=== PATIENT | male | born 1945 | race Caucasian/White ===

== ENCOUNTER → 2017-01-07 | Outpatient (CLI) | payer MEDICARE, BC ==
--- NOTE | 2017-01-07 15:15 | RADIOLOGY REPORT (SQ) ---
EXAM DESCRIPTION: HIPS BILATERAL COMPLETED DATE/TIME: 01/07/2017 1:57 pm REASON FOR STUDY: PAIN IN UNSPECIFIED HIP M25.559 PAIN IN UNSPECIFIED HIP M54.5 LOW BACK PAIN COMPARISON: None. NUMBER OF VIEWS: Two views TECHNIQUE: AP pelvis and additional frog-leg view of both hips. LIMITATIONS: None. FINDINGS: MINERALIZATION: Normal. HIPS: No acute fracture or dislocation. No worrisome bone lesions. PELVIS AND SACRUM: No acute fracture or dislocation. No worrisome bone lesions. PUBIS AND ISCHIUM: No acute fracture. LOWER LUMBAR SPINE: See report for lumbar spine series SOFT TISSUES: No findings. OTHER: No other significant finding. IMPRESSION: NEGATIVE STUDY OF THE PELVIS AND HIPS. TECHNICAL DOCUMENTATION: JOB ID: [id number] [employer]- All Rights Reserved
--- NOTE | 2017-01-07 16:35 | RADIOLOGY REPORT (SQ) ---
EXAM DESCRIPTION: LUMBAR SPINE COMPLETE COMPLETED DATE/TIME: 01/07/2017 1:57 pm REASON FOR STUDY: LOW BACK PAIN M25.559 PAIN IN UNSPECIFIED HIP M54.5 LOW BACK PAIN COMPARISON: None. NUMBER OF VIEWS: Five views including obliques. TECHNIQUE: AP, lateral, oblique, and sacral radiographic images acquired of the lumbar spine. LIMITATIONS: None. FINDINGS: MINERALIZATION: Normal. SEGMENTATION: Normal. No transitional anatomy. ALIGNMENT: Minimal retrolisthesis of L1 over L2, and L2 over L3. VERTEBRAE: Maintained height. No fracture or worrisome bone lesion. DISCS: High-grade disc space narrowing at L1-2, and L5-S1. Moderate disc space narrowing at the othe r lumbar levels. POSTERIOR ELEMENTS: Pedicles and facets are intact. No pars defect or posterior arch defects. Bilat eral facet arthropathy left greater than right at L3-4, L4-5, and L5-S1. HARDWARE: None in the spine. PARASPINAL SOFT TISSUES: Normal. PELVIS: Intact as visualized. No fractures or worrisome bone lesions. SI joints intact. OTHER: No other significant finding. IMPRESSION: Diffuse degenerative disc changes with lower lumbar facet arthropathy. No acute fracture. TECHNICAL DOCUMENTATION: JOB ID: [id number] [employer]- All Rights Reserved
== END ==
LOC: OD 13:33
PROVIDERS: ATTEND Nurse Practitioner
DX: M25.552 Pain in left hip (principal); M25.551 Pain in right hip; M54.5 Low back pain
CPT/HCPCS: 72110; 73522

== ENCOUNTER → 2017-07-18 | Outpatient (CLI) | payer MEDICARE, BC ==
--- NOTE | 2017-07-18 13:43 | RADIOLOGY REPORT (SQ) ---
EXAM DESCRIPTION: T SPINE AP/LAT COMPLETED DATE/TIME: 07/18/2017 1:29 pm REASON FOR STUDY: DORSALGIA, UNSPECIFIED M54.9 DORSALGIA, UNSPECIFIED COMPARISON: Lumbar spine 01/07/2017 NUMBER OF VIEWS: Two views. TECHNIQUE: AP and lateral radiographic images acquired of the thoracic spine. LIMITATIONS: None. FINDINGS: MINERALIZATION: Normal. ALIGNMENT: Minor scoliosis mid thoracic region. VERTEBRAE: Minor flattening mid and lower thoracic vertebral bodies, appear stable from visualized po rtion of prior lateral lumbar spine. DISCS: Multilevel disc space narrowing with osteophytes. HARDWARE: None in the spine. MEDIASTINUM AND SOFT TISSUES: Prominent mediastinum. May reflect technique. Consider chest followup . VISUALIZED LUNG GUERIN: Clear. OTHER: No other significant finding. IMPRESSION: Diffuse arthritic changes thoracic spine with minor old flattening mid and lower thoraci c vertebral bodies. COMMENT: Prominent mediastinum may reflect technique. Consider chest x-ray followup peer TECHNICAL DOCUMENTATION: JOB ID: [id number] [employer]- All Rights Reserved Reading location - IP/workstation name: [email or web address]
== END ==
LOC: OD 13:15
PROVIDERS: ATTEND Nurse Practitioner
DX: M54.9 Dorsalgia, unspecified (principal); M46.84 Other specified inflammatory spondylopathies, thoracic region
CPT/HCPCS: 72070

== ENCOUNTER → 2017-08-29 | Outpatient (CLI) | payer MEDICARE, BC ==
--- NOTE | 2017-08-29 14:02 | EKG REPORT ---
SEVERITY:- NORMAL ECG - SINUS RHYTHM : Confirmed by: Manjinder Penn MD 29-Aug-2017 14:02:11
[2017-08-29 14:15] LABS: ABSOLUTE BASOPHILS # (AUTO) 0.1 10^3/uL (0.0-0.2); ABSOLUTE EOSINOPHILS # (AUTO) 0.4 10^3/uL (0.0-0.6); ABSOLUTE LYMPHOCYTES (AUTO) 1.6 10^3/uL (0.5-4.7); ABSOLUTE MONOCYTES (AUTO) 0.7 10^3/uL (0.1-1.4); BASOPHILS % (AUTO) 1.1 % (0-2); EOSINOPHILS % (AUTO) 5.2 % (0-6); HEMOGLOBIN 15.4 g/dL (13.5-17.0); LYMPHOCYTES % (AUTO) 20.5 % (13-45); MEAN CORPUSCULAR HEMOGLOBIN 29.8 pg (27.0-33.4); MEAN CORPUSCULAR HGB CONC 34.2 g/dL (32.0-36.0); MEAN CORPUSCULAR VOLUME 87 fl (80-97); MONOCYTES % (AUTO) 9.5 % (3-13); PLATELET COUNT 346 10^3/uL (150-450); RED BLOOD COUNT 5.15 10^6/uL (4.35-5.55); RED CELL DISTRIBUTION WIDTH 14.1 % (11.5-14.0); SEGMENTED NEUTROPHILS % (AUTO) 63.7 % (42-78); TOTAL CELLS COUNTED % (AUTO) 100 %; WHITE BLOOD COUNT 7.8 10^3/uL (4.0-10.5)
[2017-08-29 14:29] LABS: APPEARANCE,URINE CLEAR; BILIRUBIN,URINE NEGATIVE (NEGATIVE); COLOR,URINE YELLOW; GLUCOSE, URINE NEGATIVE (NEGATIVE); KETONES,URINE NEGATIVE (NEGATIVE); LEUKOCYTE ESTERASE,URINE NEGATIVE (NEGATIVE); NITRITE,URINE NEGATIVE (NEGATIVE); PROTEIN,URINE NEGATIVE (NEGATIVE); URINE SPECIFIC GRAVITY 1.016; UROBILINOGEN,URINE NEGATIVE mg/dL (<2.0)
[2017-08-29 14:43] LABS: ANION GAP 14 (5-19); BLOOD UREA NITROGEN 26 mg/dL (7-20); CALCIUM 10.3 mg/dL (8.4-10.2); CARBON DIOXIDE 30 mmol/L (22-30); CHLORIDE 97 mmol/L (98-107); GLUCOSE 63 mg/dL (75-110)
--- NOTE | 2017-08-29 14:57 | RADIOLOGY REPORT (SQ) ---
EXAM DESCRIPTION: CHEST PA/LATERAL COMPLETED DATE/TIME: 08/29/2017 1:34 pm REASON FOR STUDY: PRE-OP COMPARISON: None. EXAM PARAMETERS: NUMBER OF VIEWS: two views TECHNIQUE: Digital Frontal and Lateral radiographic views of the chest acquired. RADIATION DOSE: NA LIMITATIONS: none FINDINGS: LUNGS AND PLEURA: No opacities, masses or pneumothorax. No pleural effusion. MEDIASTINUM AND HILAR STRUCTURES: No masses or contour abnormalities. HEART AND VASCULAR STRUCTURES: Heart normal size. No evidence for failure. BONES: No acute findings. Degenerative changes in the spine. HARDWARE: None in the chest. OTHER: No other significant finding. IMPRESSION: NO SIGNIFICANT RADIOGRAPHIC FINDING IN THE CHEST. TECHNICAL DOCUMENTATION: JOB ID: [id number] [employer]- All Rights Reserved Reading location - IP/workstation name: [email or web address]
== END ==
LOC: OD 12:44
PROVIDERS: ATTEND Orthopaedic Surgery
DX: Z01.810 Encounter for preprocedural cardiovascular examination (principal); Z01.812 Encounter for preprocedural laboratory examination; Z01.818 Encounter for other preprocedural examination
CPT/HCPCS: 36415; 71046; 80048; 81001; 85025; 93005; 93010

== ENCOUNTER 2017-09-23 11:34 | Inpatient (IN) | payer MEDICARE, BC ==
[~2017-09-23 11:34] MED LIST: BUPIVACAINE INJ/PF LIPOSOME/PF 266 MG/20 ML SDV INJ PRN; CEFAZOLIN INJ 1 GM VIAL IV PRN; IBUPROFEN 800 MG in NORMAL SALINE 250 ML IV PRN; LACTATED RINGERS 1000 ML IV PRN; LANSOPRAZOLE 15 MG TAB.RAP.DR PO PRN; LIDOCAINE 0.5% INJ-PF (5 MG/ML) 50 ML SDV SUBCUT PRN; OXYCODONE HCL SR 10 MG TABLET PO PRN; VANCOMYCIN HCL 1,000 MG in DEXTROSE 5%-WATER 250 ML IV PRN
[2017-09-23] MEDS ORDERED: FENTANYL CITRATE INJ/PF 100 MCG/2 ML AMPUL ONE (12:43)
[2017-09-23] MEDS ORDERED: MIDAZOLAM 2 MG/2 ML INJ ONE (12:43)
[2017-09-23] MEDS ORDERED: LIDOCAINE 2% INJ-PF (20 MG/ML) 10 ML AMPUL ONE (12:43)
[2017-09-23] MEDS ORDERED: DEXAMETHASONE SOD PHOSPHATE INJ 4 MG/1 ML VIAL ONE (12:44)
[2017-09-23] MEDS ORDERED: PROPOFOL INJ 200 MG/20 ML VIAL IV ONE (12:44)
[2017-09-23] MEDS ORDERED: ACETAMINOPHEN 100 ML IV ONE (12:44)
[2017-09-23] MEDS ORDERED: ONDANSETRON HCL INJ/PF 4 MG/2 ML SDV ONE (12:44)
[2017-09-23] MEDS ORDERED: TETRACAINE HCL/PF 20MG/2ML AMPULE (SPINAL) ONE (12:45)
[2017-09-23] MEDS ORDERED: THROMBIN (BOVINE) 5000 UNIT EPITAXIS KIT ONE (12:53)
[2017-09-23] MEDS ORDERED: BUPIVACAINE INJ/PF LIPOSOME/PF 266 MG/20 ML SDV ONE (12:54)
[2017-09-23] MEDS ORDERED: THROMBIN (BOVINE) TOPICAL 20000 UNIT VIAL ONE (13:12)
[2017-09-23] MEDS ORDERED: ONDANSETRON HCL INJ/PF 4 MG/2 ML SDV IV PRN ×2 (14:38→15:24)
[2017-09-23] MEDS ORDERED: PROMETHAZINE HCL INJ 25 MG/1 ML VIAL IV PRN ×2 (14:38)
[2017-09-23] MEDS ORDERED: MEPERIDINE HCL/PF INJ 25 MG/1 ML DISP.SYRIN IV PRN (14:38)
[2017-09-23] MEDS ORDERED: MORPHINE SULFATE 10 MG/ML INJ IV PRN ×4 (14:38→15:24)
[2017-09-23] MEDS ORDERED: DIPHENHYDRAMINE HCL 50 MG/ML VIAL IV PRN ×2 (14:38→15:24)
[2017-09-23] MEDS ORDERED: FENTANYL CITRATE INJ/PF 100 MCG/2 ML AMPUL IV PRN ×3 (14:38)
[2017-09-23] MEDS ORDERED: MAG HYDROX/AL HYDROX/SIMETH SUSP 30 ML UDCUP PO PRN (15:24)
[2017-09-23] MEDS ORDERED: MORPHINE SULFATE 10 MG/ML INJ IM PRN (15:24)
[2017-09-23] MEDS ORDERED: ZOLPIDEM TARTRATE 5 MG TABLET PO PRN (15:24)
[2017-09-23] MEDS ORDERED: RINGERS SOLUTION,LACTATED 1,000 ML IV PRN (15:24)
[2017-09-23] MEDS ORDERED: ONDANSETRON 4 MG TAB.RAPDIS PO PRN (15:24)
[2017-09-23] MEDS ORDERED: ACETAMINOPHEN 325 MG TABLET PO PRN (15:24)
--- NOTE | 2017-09-23 15:44 | Operative Report ---
Operative Report DATE OF SURGERY: 09/23/17 PREOPERATIVE DIAGNOSIS: Left hip arthritis OPERATION: Left hip arthroplasty SURGEON: GRAYSON BARAHONA ANESTHESIA: Spinal TISSUE REMOVED OR ALTERED: Bone to pathology ESTIMATED BLOOD LOSS: 100 PROCEDURE: Implants used: Femur: Watkins Accolade 2 stem, size 8 Acetabular shell: 56 mm trident into hemispherical Kim shell Liner: 36 mm flat cross-link polyethylene liner Head: 36 mm chrome cobalt head -5 neck The patient is placed in a right lateral decubitus position on the operating table. The left lower extremity and hindquarter is prepped and draped in a sterile fashion. A curvilinear incision was made over the greater trochanter a posterior approach the hip was taken. The femoral head is dislocated and the femoral neck transected using an oscillating saw. Attention was next turned to the acetabulum. Soft tissues cleared off the acetabulum using electrocautery. The acetabulum was then prepared using a series of hemispherical reamers until a 55 millimeters reamer is seated. Subsequently a 56 millimeters Watkins titanium hemispherical shell is impacted into position and secured with one screw. A standard flat 36 millimeters cross- link liner is impacted into the shell. Attention was next turned to the femur. Access is gained to the femoral canal using a box osteotome to the piriformis fossa. The femur is then prepared using a series of broaches until a number 8 broach is seated. A trial reduction was now performed using a 36 millimeters head with -5 neck. Preoperative leg length was recreated and is excellent anterior posterior stability. A decision was made to proceed with the above construct. All trial implants were removed. The wound is irrigated with pulsed lavage. A number 8 stem is impacted into the femoral canal. A trial reduction was again performed with a 36 mm head and a -5 neck. Findings as previously. The hip was dislocated one last time and the final chrome-cobalt head is impacted onto the trunnion. The hip was reduced. Wound is copiously irrigated with pulsed lavage. Sent closed in layers using interrupted Vicryl followed by jonel. A sterile dressing is applied and the patient's returned to recovery room in satisfactory patient.
[2017-09-23] MEDS ORDERED: TRANEXAMIC ACID INJ/PF 1,000 MG/10 ML SDV IV ONE ×2 (16:19→17:00)
--- NOTE | 2017-09-23 16:30 | RADIOLOGY REPORT (SQ) ---
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 NUMBER OF VIEWS: One view TECHNIQUE: Digital radiographic images of the pelvis post-procedure LIMITATIONS: None. FINDINGS: BONES: No worrisome or unexpected findings post-procedure. DEVICE: Intact left total hip arthroplasty. SOFT TISSUES: No worrisome findings. Expected postoperative soft tissue changes. IMPRESSION: SATISFACTORY POSTOPERATIVE PELVIS. TECHNICAL DOCUMENTATION: JOB ID: [id number] [employer]- All Rights Reserved Reading location - IP/workstation name: [email or web address] BEDS AT THE [facility]
[2017-09-23] MEDS: PREGABALIN 75 MG CAPSULE PO SCH (18:16)
[2017-09-23] MEDS: LORAZEPAM 0.5 MG TABLET PO SCH ×2 (18:16→23:15)
[2017-09-23] MEDS: DULOXETINE HCL 30 MG CAPSULE.DR PO SCH (18:16)
[2017-09-23] MEDS: GABAPENTIN 300 MG CAPSULE PO SCH (18:17)
[2017-09-23] MEDS: SENNOSIDES/DOCUSATE 8.6-50 MG 1 EACH TABLET PO SCH (18:17)
[2017-09-23] MEDS: OXYCODONE HCL IR 5 MG TABLET PO PRN (19:09)
[2017-09-23] MEDS: ZOLPIDEM TARTRATE 5 MG TABLET PO SCH (22:13)
[2017-09-23] MEDS: OXYCODONE HCL SR 10 MG TABLET PO SCH (22:13)
[2017-09-23] MEDS: IBUPROFEN 800 MG in NORMAL SALINE 250 ML IV SCH (22:13)
[2017-09-24] MEDS ORDERED: VANCOMYCIN HCL 1,000 MG in DEXTROSE 5%-WATER 250 ML IV ONE (03:24)
[2017-09-24] MEDS: LORAZEPAM 0.5 MG TABLET PO SCH ×3 (05:53→18:35)
[2017-09-24] MEDS: DULOXETINE HCL 30 MG CAPSULE.DR PO SCH ×2 (05:53→18:35)
[2017-09-24] MEDS: LANSOPRAZOLE 30 MG TAB.RAP.DR PO SCH (05:53)
[2017-09-24] MEDS: IBUPROFEN 800 MG in NORMAL SALINE 250 ML IV SCH ×3 (05:53→21:29)
[2017-09-24 06:22] LABS: HEMATOCRIT 33.8 % (37.9-51.0); HEMOGLOBIN 11.6 g/dL (13.5-17.0); MEAN CORPUSCULAR HEMOGLOBIN 30.1 pg (27.0-33.4); MEAN CORPUSCULAR HGB CONC 34.4 g/dL (32.0-36.0); MEAN CORPUSCULAR VOLUME 87 fl (80-97); PLATELET COUNT 329 10^3/uL (150-450); RED BLOOD COUNT 3.87 10^6/uL (4.35-5.55); RED CELL DISTRIBUTION WIDTH 14.1 % (11.5-14.0); WHITE BLOOD COUNT 12.2 10^3/uL (4.0-10.5)
[2017-09-24 06:43] LABS: ANION GAP 12 (5-19); BLOOD UREA NITROGEN 30 mg/dL (7-20); CALCIUM 9.2 mg/dL (8.4-10.2); CARBON DIOXIDE 24 mmol/L (22-30); CHLORIDE 101 mmol/L (98-107); GLUCOSE 157 mg/dL (75-110); POTASSIUM 4.1 mmol/L (3.6-5.0); SODIUM 136.7 mmol/L (137-145)
--- NOTE | 2017-09-24 07:01 | PDOC PROGRESS REPORT ---
Subjective Progress Note for:: 09/24/17 Reason For Visit: LEFT HIP ARTHRITIS 71-year-old white male postop day 1 left hip arthroplasty. Patient with minimal complaints this morning. Physical Exam Vital Signs: Temp Pulse Resp BP Pulse Ox 36.8 C 89 18 101/65 95 09/24/17 04:41 09/24/17 04:41 09/24/17 04:41 09/24/17 04:41 09/24/17 04:41 Intake & Output 09/23/17 09/24/17 09/25/17 06:59 06:59 06:59 Intake Total 4672 Output Total 2475 Balance 2197 Weight 113.4 kg General appearance: PRESENT: no acute distress Head exam: PRESENT: normocephalic Respiratory exam: PRESENT: unlabored Cardiovascular exam: PRESENT: RRR Pulses: PRESENT: +1 pedal pulses bilateral Vascular exam: PRESENT: normal capillary refill GI/Abdominal exam: PRESENT: soft Rectal exam: PRESENT: deferred Extremities exam: PRESENT: other - Left hip dressing with a small amount of drainage proximally. Leg lengths are equal. Distal neurovascular examination is intact. Neurological exam: PRESENT: alert, awake, oriented to person, oriented to place , oriented to time, oriented to situation. ABSENT: motor sensory deficit Psychiatric exam: PRESENT: appropriate affect, normal mood. ABSENT: homicidal ideation, suicidal ideation Skin exam: PRESENT: dry, intact, warm. ABSENT: cyanosis, rash Results Laboratory Results: 09/24/17 05:23 09/24/17 05:23 09/23/17 09/23/17 09/24/17 11:55 11:55 05:23 WBC 12.2 H RBC 3.87 L Hgb 11.6 L Hct 33.8 L MCV 87 MCH 30.1 MCHC 34.4 RDW 14.1 H Plt Count 329 Sodium Potassium 4.4 Chloride Carbon Dioxide Anion Gap BUN Creatinine Est GFR ( Amer) Est GFR (Non-Af Amer) Glucose Calcium Blood Type O POSITIVE Antibody Screen NEGATIVE 09/24/17 05:23 WBC RBC Hgb Hct MCV MCH MCHC RDW Plt Count Sodium 136.7 L Potassium 4.1 Chloride 101 Carbon Dioxide 24 Anion Gap 12 BUN 30 H Creatinine 1.23 Est GFR ( Amer) > 60 Est GFR (Non-Af Amer) 58 L Glucose 157 H Calcium 9.2 Blood Type Antibody Screen Impressions: Pelvis X-Ray 09/23/17 15:26 IMPRESSION: SATISFACTORY POSTOPERATIVE PELVIS. Status: Imported from PACS Assessment & Plan - Diagnosis (1) Arthritis of left hip Is this a current diagnosis for this admission?: Yes Plan: Patient to be mobilized with physical therapy and weightbearing as tolerated basis. Anticipate discharge home tomorrow with home health services - Time Time Spent with patient: 15-24 minutes Anticipated discharge: Home with Homehealth Within: within 24 hours
[2017-09-24] MEDS: OXYCODONE HCL IR 5 MG TABLET PO PRN ×2 (07:45→15:54)
[2017-09-24] MEDS: PRENATAL VITAMIN W DHA CAPSULE PO SCH (09:50)
[2017-09-24] MEDS: ASPIRIN 325 MG TABLET PO SCH (09:51)
[2017-09-24] MEDS: LOSARTAN POTASSIUM 50 MG TABLET PO SCH (09:51)
[2017-09-24] MEDS: AMLODIPINE BESYLATE 10 MG TABLET PO SCH ×2 (09:51→09:54)
[2017-09-24] MEDS: SENNOSIDES/DOCUSATE 8.6-50 MG 1 EACH TABLET PO SCH ×2 (09:52→18:35)
[2017-09-24] MEDS: OXYCODONE HCL SR 10 MG TABLET PO SCH ×2 (09:52→21:29)
[2017-09-24] MEDS: PREGABALIN 75 MG CAPSULE PO SCH ×2 (09:52→18:35)
[2017-09-24] MEDS: FINASTERIDE 5 MG TABLET PO SCH (09:52)
[2017-09-24] MEDS: GABAPENTIN 300 MG CAPSULE PO SCH ×3 (09:53→18:35)
[2017-09-24] MEDS: TAMSULOSIN HCL 0.4 MG CAP.SR.24H PO SCH (09:53)
[2017-09-24] MEDS: HYDROCHLOROTHIAZIDE 25 MG TABLET PO SCH (09:53)
[2017-09-24] MEDS ORDERED: (PENDING PHARMACY ID) (Losartan/Hydrochlorothiazide [Losartan-Hctz 100-25 Mg Tab] 1 EACH) PO SCH (10:00)
[2017-09-24] MEDS ORDERED: (PENDING PHARMACY ID) (Losartan/Hydrochlorothiazide [Hyzaar 100-25 Tablet] 1 EACH) PO SCH (10:00)
[2017-09-24] MEDS: ZOLPIDEM TARTRATE 5 MG TABLET PO SCH (21:29)
[2017-09-25 00:20] VITALS: BP 120/66
[2017-09-25] MEDS: LORAZEPAM 0.5 MG TABLET PO SCH ×2 (05:19→10:31)
[2017-09-25] MEDS: IBUPROFEN 800 MG in NORMAL SALINE 250 ML IV SCH (06:09)
[2017-09-25] MEDS: DULOXETINE HCL 30 MG CAPSULE.DR PO SCH (06:10)
[2017-09-25] MEDS: LANSOPRAZOLE 30 MG TAB.RAP.DR PO SCH (06:10)
[2017-09-25 07:05] LABS: HEMATOCRIT 32.8 % (37.9-51.0); HEMOGLOBIN 11.2 g/dL (13.5-17.0); MEAN CORPUSCULAR HEMOGLOBIN 30.1 pg (27.0-33.4); MEAN CORPUSCULAR HGB CONC 34.1 g/dL (32.0-36.0); MEAN CORPUSCULAR VOLUME 88 fl (80-97); PLATELET COUNT 324 10^3/uL (150-450); RED BLOOD COUNT 3.72 10^6/uL (4.35-5.55); RED CELL DISTRIBUTION WIDTH 14.4 % (11.5-14.0); WHITE BLOOD COUNT 7.6 10^3/uL (4.0-10.5)
--- NOTE | 2017-09-25 07:15 | PDOC DISCHARGE SUMMARY ---
General - Admit/Disc Date/PCP Admission Date/Primary Care Provider: 09/23/17 11:34 MITCH LLOYD Discharge Date: 09/25/17 - Discharge Diagnosis (1) Arthritis of left hip Is this a current diagnosis for this admission?: Yes - Additional Information Resuscitation Status: Full Code Discharge Diet: As Tolerated, Regular Discharge Activity: Balance Activity w/Rest, No Driving, No tub bath Home Medications: Amlodipine Besylate 10 mg PO DAILY 06/08/15 Losartan/Hydrochlorothiazide [Hyzaar 100-25 Tablet] 1 each PO DAILY 06/08/15 Meloxicam 15 mg PO DAILY 06/08/15 Tamsulosin HCl [Flomax 0.4 mg Cap.sr] 0.4 mg PO DAILY 06/08/15 Aspirin 325 mg PO DAILY 09/02/17 Duloxetine HCl [Cymbalta] 60 mg PO BID 09/02/17 Finasteride 5 mg PO DAILY 09/02/17 Lorazepam [Ativan 0.5 mg Tablet] 0.5 mg PO ASDIR PRN 09/02/17 Gabapentin 1 tab PO TID 09/17/17 Oxycodone HCl 1 tab PO QID 09/17/17 Amlodipine Besylate 10 mg PO DAILY 09/23/17 Losartan/Hydrochlorothiazide [Losartan-Hctz 100-25 mg Tab] 1 each PO DAILY 09/23 Zolpidem Tartrate [Ambien 5 mg Tablet] 10 mg PO QHS 09/23/17 Oxycodone HCl [Oxy-Ir 5 mg Tablet] 5 mg PO Q6HP PRN tablet 09/25/17 History of Present Illness History of Present Illness: MARYANN BAIN is a 71 year old male with progressive left hip pain and functional disability. Patient is admitted for elective left hip arthroplasty. Hospital Course Hospital Course: Patient is admitted through the operating where he undergoes uncomplicated left hip arthroplasty. He tolerates the procedure without complication. On his day of surgery he has a prolonged spinal anesthetic which precludes physical therapy. On postop day 1 he makes excellent progress with physical therapy pain is well controlled. Dressing is changed on postop day 2 by the nursing staff. He subsequently for discharge home with home health services. Physical Exam Vital Signs: Temp Pulse Resp BP Pulse Ox 36.9 C 76 16 120/66 95 09/25/17 00:00 09/25/17 00:00 09/25/17 00:00 09/25/17 00:00 09/25/17 00:00 Intake & Output 09/24/17 09/25/17 09/26/17 06:59 06:59 06:59 Intake Total 4672 2004 Output Total 2475 600 Balance 2197 1405 Weight 113.4 kg 119.2 kg General appearance: PRESENT: no acute distress, mild distress, obese Head exam: PRESENT: normocephalic Respiratory exam: PRESENT: unlabored Cardiovascular exam: PRESENT: RRR Pulses: PRESENT: +1 pedal pulses bilateral Vascular exam: PRESENT: normal capillary refill GI/Abdominal exam: PRESENT: soft Rectal exam: PRESENT: deferred Extremities exam: PRESENT: other - Patient lying comfortably in bed. Small amount of dried drainage on the left hip dressing which will be changed by nursing prior to discharge. Leg lengths are equal. Distal neurovascular examination is intact. Neurological exam: PRESENT: alert, awake, oriented to person, oriented to place , oriented to time, oriented to situation. ABSENT: motor sensory deficit Psychiatric exam: PRESENT: appropriate affect, normal mood. ABSENT: homicidal ideation, suicidal ideation Skin exam: PRESENT: dry, intact, warm. ABSENT: cyanosis, rash Results Laboratory Results: 09/25/17 06:30 09/24/17 05:23 09/25/17 06:30 WBC 7.6 RBC 3.72 L Hgb 11.2 L Hct 32.8 L MCV 88 MCH 30.1 MCHC 34.1 RDW 14.4 H Plt Count 324 Impressions: Pelvis X-Ray 09/23/17 15:26 IMPRESSION: SATISFACTORY POSTOPERATIVE PELVIS. Status: Imported from PACS Qualifiers - * PATIENT BEING DISCHARGED WITH ANY OF THE FOLLOWING DIAGNOSIS: No VTE patient discharged on overlapping Therapy?: Yes Plan Discharge Plan: Patient to be discharged home with home health nursing, home health physical therapy, wheeled walker, bedside commode. Follow-up with Dr. Louisa Stevens [place] for surgery in 2 weeks for staple removal. Time Spent: Less than 30 Minutes
[2017-09-25] MEDS: OXYCODONE HCL IR 5 MG TABLET PO PRN (08:43)
[2017-09-25] MEDS: AMLODIPINE BESYLATE 10 MG TABLET PO SCH ×2 (10:31)
[2017-09-25] MEDS: LOSARTAN POTASSIUM 50 MG TABLET PO SCH (10:31)
[2017-09-25] MEDS: HYDROCHLOROTHIAZIDE 25 MG TABLET PO SCH (10:35)
[2017-09-25] MEDS: ASPIRIN 325 MG TABLET PO SCH (10:35)
[2017-09-25] MEDS: FINASTERIDE 5 MG TABLET PO SCH (10:35)
[2017-09-25] MEDS: GABAPENTIN 300 MG CAPSULE PO SCH (10:37)
[2017-09-25] MEDS: OXYCODONE HCL SR 10 MG TABLET PO SCH (10:38)
[2017-09-25] MEDS: SENNOSIDES/DOCUSATE 8.6-50 MG 1 EACH TABLET PO SCH (10:38)
[2017-09-25] MEDS: PREGABALIN 75 MG CAPSULE PO SCH (10:38)
[2017-09-25] MEDS: PRENATAL VITAMIN W DHA CAPSULE PO SCH (10:38)
[2017-09-25] MEDS: TAMSULOSIN HCL 0.4 MG CAP.SR.24H PO SCH (10:38)
== END 2017-09-25 10:45 | disposition home health service (06) | DRG 470 ==
LOC: INOR 11:34 → 4S 17:25
PROVIDERS: ADMIT Orthopaedic Surgery; ATTEND Orthopaedic Surgery
PROC: 0SRB02Z Replacement of Left Hip Joint with Metal on Polyethylene Synthetic Substitute, Open Approach (ICD-10-PCS; principal; 2017-09-23 13:45)
DX: M87.852 Other osteonecrosis, left femur (principal); E78.00 Pure hypercholesterolemia, unspecified; I10 Essential (primary) hypertension; N40.0 Benign prostatic hyperplasia without lower urinary tract symptoms; F41.9 Anxiety disorder, unspecified; E66.3 Overweight; Z68.37 Body mass index [BMI] 37.0-37.9, adult
CPT/HCPCS: 01214; 36415; 72170; 80048; 84132; 85027; 86850; 86900; 86901; 88304; 88311; 94799; C9290; G8978-GP; G8979-GP; J0131; J0690; J1100; J1741; J2250; J2270; J2405; J2704; J3010; J3370; J3490; J7050; J7060